=== PATIENT | female | born 1945 | race Asian ===

== ENCOUNTER 2018-05-04 11:22 | Outpatient (CLI) | payer OTHER ==
[~2018-05-04 11:22] MED LIST: ACET7.5T70 PO; AMIT25TA22 PO; ASPIRIN/ENTERIC81 MG PO; CARV6.25 PO; DULO60CA2 PO; EZET10TA13 PO; FLUTMIS6 INH; FURO40TA93 PO; GABA100C2 PO; GLUMETZA500 MG PO; POT CL MICRO10 MEQ PO; POTASSIUM CHLO10 ME2 PO; PRILOSEC20 MG PO; TIOTCAP2 INH; TRAMADL/APAP1 TAB PO; VALTREX500 MG PO; ZYRTEC ALLGY10 MG PO
[2018-05-04 12:39] LABS: PLATELET COUNT 220 K/uL (152-353)
== END 2018-05-04 20:50 | disposition home or self-care (01) ==
LOC: LABW 11:22
PROVIDERS: Family Medicine
DX: D64.9 Anemia, unspecified (principal); K21.0 Gastro-esophageal reflux disease with esophagitis; E78.2 Mixed hyperlipidemia; E55.9 Vitamin D deficiency, unspecified; E11.9 Type 2 diabetes mellitus without complications; I10 Essential (primary) hypertension
CPT/HCPCS: 36415; 80053; 80061; 81000; 82306; 83036; 83735; 84439; 84443; 84550; 85027

== ENCOUNTER 2018-05-31 09:33 | Outpatient (CLI) | payer OTHER | END 2018-05-31 19:45 | disposition home or self-care (01) | LOC: MAMMO 09:33 | DX: Z12.31 Encounter for screening mammogram for malignant neoplasm of breast (principal); Z13.820 Encounter for screening for osteoporosis; Z78.0 Asymptomatic menopausal state ==

== ENCOUNTER 2019-02-04 14:20 | Outpatient (CLI) | payer OTHER | END 2019-02-04 19:41 | disposition home or self-care (01) | LOC: RESP 14:20 | DX: R01.1 Cardiac murmur, unspecified (principal); R06.02 Shortness of breath | CPT/HCPCS: 93005 ==

== ENCOUNTER 2021-01-06 10:21 | Outpatient (CLI) | payer OTHER ==
[2021-01-06 11:05] LABS: PLATELET COUNT 214 K/uL (152-353)
[2021-01-06 11:36] LABS: POTASSIUM 4.1 mmol/L (3.6-5.2)
== END 2021-01-06 23:00 | disposition home or self-care (01) ==
LOC: LABW 10:21
PROVIDERS: ATTEND Family Medicine
DX: I11.0 Hypertensive heart disease with heart failure (principal); I50.9 Heart failure, unspecified; J44.9 Chronic obstructive pulmonary disease, unspecified; E78.00 Pure hypercholesterolemia, unspecified; E11.9 Type 2 diabetes mellitus without complications; K21.9 Gastro-esophageal reflux disease without esophagitis; E55.9 Vitamin D deficiency, unspecified
CPT/HCPCS: 36415; 80053; 80061; 81000; 82306; 83036; 83735; 84439; 84443; 85027

== ENCOUNTER 2022-10-17 12:40 | Outpatient (CLI) | payer OTHER ==
[2022-10-17 13:11] LABS: PLATELET COUNT 235 K/uL (152-353)
[2022-10-17 13:47] LABS: POTASSIUM 3.5 mmol/L (3.6-5.2)
== END 2022-10-17 20:07 | disposition home or self-care (01) ==
LOC: LABW 12:40
PROVIDERS: ATTEND Family Medicine
DX: I11.0 Hypertensive heart disease with heart failure (principal); I50.9 Heart failure, unspecified; E11.9 Type 2 diabetes mellitus without complications; E78.00 Pure hypercholesterolemia, unspecified; G89.4 Chronic pain syndrome; R82.998 Other abnormal findings in urine; E55.9 Vitamin D deficiency, unspecified; Z79.899 Other long term (current) drug therapy
CPT/HCPCS: 36415; 80053; 80061; 81000; 82306; 83036; 83735; 84439; 84443; 84550; 85027; 87077; 87086; 87088; 87186